=== PATIENT | female | born 1995 | race Caucasian/White ===

== ENCOUNTER 2020-09-19 16:43 | Emergency (ER) | payer MEDICAID, SELFPAY ==
[~2020-09-19] VITALS: Ht 152.4 cm; Wt 81.6 kg
[2020-09-19 18:12] VITALS: BP 141/94; Ht 152.4 cm; Wt 81.6 kg
== END 2020-09-19 19:02 | disposition home or self-care (01) ==
LOC: ED 16:43
DX: U07.1 COVID-19 (principal); E03.9 Hypothyroidism, unspecified
CPT/HCPCS: U0003